=== PATIENT | female | born 1995 | race Caucasian/White ===

== ENCOUNTER 2021-10-29 17:12 | Outpatient (REF) | payer BC, SELFPAY | END 2021-10-29 17:13 | disposition home or self-care (01) | LOC: LBN 17:12 | PROVIDERS: Visit Provider Obstetrics & Gynecology Gynecology | DX: N89.8 Other specified noninflammatory disorders of vagina (principal) | CPT/HCPCS: 87480; 87510; 87660 ==

== ENCOUNTER 2021-11-03 04:08 | Outpatient (CLI) | payer BC, SELFPAY | END 2021-11-03 04:09 | disposition home or self-care (01) | LOC: LBO 04:08 | PROVIDERS: Visit Provider Obstetrics & Gynecology Gynecology ==

== ENCOUNTER 2021-11-03 04:29 | Outpatient (CLI) | payer BC, SELFPAY ==
[2021-11-03 10:05] LABS: HCT 41.1 % (36.0-46.0); HGB 14.2 g/dL (11.2-15.7); MCH 32.6 pg (27.0-33.0); MCHC 34.5 % (32.0-36.0); MCV 94.3 fL (80-95); Platelet Count 232 10^3/uL (130-400); RBC 4.36 10^6/uL (3.93-5.22); RDW-SD 41.9 fL; WBC 4.79 10^3/uL (4.4-10.8)
[2021-11-03 11:25] LABS: HCG Qual (Serum) Negative
[2021-11-03 11:44] LABS: Folate 17.2 ng/mL (8.6-20.0)
[2021-11-03 13:03] LABS: Source Nasal/Nares
[2021-11-03 16:08] LABS: COVID-19 PCR Negative (Negative)
[2021-11-04 14:57] LABS: Vitamin B12 1545 pg/mL (193-986)
== END 2021-11-03 04:30 | disposition home or self-care (01) ==
LOC: LBO 04:29
PROVIDERS: Visit Provider Obstetrics & Gynecology Gynecology
DX: N94.6 Dysmenorrhea, unspecified (principal); N89.8 Other specified noninflammatory disorders of vagina; A60.00 Herpesviral infection of urogenital system, unspecified; Z01.84 Encounter for antibody response examination; Z20.822 Contact with and (suspected) exposure to COVID-19; Z01.818 Encounter for other preprocedural examination; Z01.812 Encounter for preprocedural laboratory examination; Z86.2 Personal history of diseases of the blood and blood-forming organs and certain disorders involving the immune mechanism
CPT/HCPCS: 36415; 85027; 86850; 86900; 86901; 87635; 82607; 82746; 84703

== ENCOUNTER 2021-11-06 11:17 | Day surgery (SDC) | payer BC, SELFPAY ==
[2021-11-06] VITALS (11 sets, daily range): BP systolic 103–119; BP diastolic 63–88; PULSE 60–82; RESP 12–20; TEMP 36.5–36.8; TEMPC 36.3; O2SAT 96–100; BMI 20.2
--- NOTE | 2021-11-06 11:57 | W.ANESPRE ---
General Info Date of Service Date Performed: 11/06/21 Height: 5 ft 6.5 in Weight: 57.9 kg Body Mass Index (BMI): 20.2 Surgical Procedure: Operation Date: 11/06/21 13:10 Proposed Procedure Side Surgeon p Diagnostic Laparoscopy Lisa Hyde MD Meds Allergies and Home Medications Allergies Allergy/AdvReac Type Severity Reaction Status Date / Time benzoyl peroxide Allergy Verified 11/06/21 11:36 Home Medication Medication Instructions Recorded albuterol sulfate 90 mcg/actuation 2 puff INHALATION Q6H PRN 09/23/21 aerosol inhaler (Ventolin HFA) ascorbic acid (vitamin C) 500 mg 500 mg PO DAILY 09/23/21 tablet clobetasol 0.05 % topical ointment 1 applic TOPICAL BID 09/23/21 ferrous sulfate 142 mg (45 mg 142 mg PO DAILY 09/23/21 iron) tablet,extended release (Slow Fe) ibuprofen 600 mg tablet 600 mg PO Q6H PRN #60 tab 10/07/21 acyclovir 400 mg tablet 400 mg PO TID #15 tab 10/29/21 cholecalciferol (vitamin D3) 50 2,000 unit PO DAILY 11/06/21 mcg (2,000 unit) tablet (Vitamin D3) lysine 1,000 mg tablet 1,000 mg PO DAILY 11/06/21 Current Visit Medications: Current Medications Generic Name Dose Route Start Last Admin Trade Name Freq PRN Reason Stop Dose Admin Ringer's Solution 1,000 mls @ 125 mls/hr 11/06/21 06:00 IV 12/05/21 23:59 INFUSION YUMIKO IV Miscellaneous Supplies 1 each 11/06/21 06:00 Iv Access IV 12/05/21 23:59 DIRECTED YUMIKO Sodium Chloride 0 ml 11/06/21 06:00 Normal Saline Flush 10 Ml Syr IV 12/05/21 23:59 PRN PRN Sodium Chloride 0 ml 11/06/21 06:00 Normal Saline 10 Ml Vial IJ 12/05/21 23:59 DIRECTED PRN Sterile Water 0 ml 11/06/21 06:00 Water,Injection,Sterile 10 Ml Vial IJ 12/05/21 23:59 DIRECTED PRN PFSH Active Problems Active Problems: Problem Status Onset Code Visit for pre-operative examination Z01.818 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 Rx with B12 injections. Surgical History Surgical History [place] teeth extracted Tobacco Smoking/Tobacco Use Status: Never Second hand exposure: No Alcohol Alcohol Intake: current Alcohol intake frequency: a few times a week Substance Use Substance use: Occasionally Substance use type: marijuana Prental History History 0 Para Hx # Term Pregnancies Multiple births Hx # Pregnancies Ectopic pregnancies AB induced Hx Number of Living Children AB spontaneous Vital Signs and Lab Results Vital Signs Most Recent Vital Signs in EMR: Most Recent Vital Signs Temp Pulse Resp BP Pulse Ox 36.6 C 76 16 103/78 100 11/06/21 11:32 11/06/21 11:32 11/06/21 11:32 11/06/21 11:32 11/06/21 11:32 Lab Results Blood Type / Crossmatch: Patient ABO/Rh O Positive 11/03/21 Antibody Screen NEGATIVE 11/03/21 Complete Blood Count: White Blood Count 4.79 10^3/uL (4.4-10.8) 11/03/21 09:45 11/03/21 Red Blood Count 4.36 10^6/uL (3.93-5.22) 11/03/21 09:45 11/03/21 Hemoglobin 14.2 g/dL (11.2-15.7) 11/03/21 09:45 11/03/21 Hematocrit 41.1 % (36.0-46.0) 11/03/21 09:45 11/03/21 Platelet Count 232 10^3/uL (130-400) 11/03/21 09:45 11/03/21 Complete Metabolic Panel: No Data to Display Liver Function Panel: No Data to Display Coagulation Panel: No Data to Display Cardiac Panel: No Data to Display Arterial Blood Gas: No Data to Display Venous Blood Gas: No Data to Display Pancreas Panel: No Data to Display Thyroid Panel: No Data to Display Infectious Disease: Coronavirus (COVID-19)(PCR) Negative (Negative) 11/03/21 10:02 11/03/21 Coronavirus 2019 Source Nasal/Nares 11/03/21 10:02 11/03/21 Blood Cultures: No Data to Display Toxicology Panel: No Data to Display Panel: Serum HCG, Qualitative Negative 11/03/21 09:45 11/03/21 Anesthesia Assessment and Plan Anesthesia History Personal History: No History of Anesthesia Complications Family History: No Family History of Anesthesia Complications Exercise Tolerance Exercise Tolerance: Metabolic Equivalents>4 Pertinent Negatives Pertinent Negatives: No Symptoms of GERD, No Major Cardiovascular Symptoms or Complaints, No Major Pulmonary Symptoms or Complaints (Exercise induced asthma ) and No History of CVA/TIA Cardiac & Pulmonary Exam Cardiac Exam: Normal S1/S2 Heart Sounds Pulmonary Exam: Clear Bilateral Breath Sounds Implantable Cardiac Device Does patient have a Pacemaker or an ICD?: No Airway Exam Known Difficult Airway: No Mallampati Class: 1 Mouth Opening: Normal (> 3cm) Thyromental Distance: Greater than 3 cm Neck Range of Motion: Full ROM Neck Circumference: Normal Teeth Condition: Normal Dentition Airway Comments: Cap lower right ASA Classification ASA Score: ASA 2 Emergency Case?: No NPO Status NPO Status: NPO Clears >2 hours, Solids >8 hours Status Status: Negative HCG Anesthesia Plan Resuscitation Status: Full Code Anesthesia Technique: General Anesthesia Airway Planned: Endotracheal Tube Monitors Used: Standard Monitors
[2021-11-06] MEDS: Lactated Ringers 1,000 ML 125 ML IV (12:04)
--- NOTE | 2021-11-06 13:36 | PERITONEUM_PTH ---
PATIENT: Maryam Hutton LOC: [facility] U#:[id number] AGE/SX: 25/F ROOM: RE11/06/[address]: Lisa Hyde : 1995 BED: DIS: 11/06/2021 SPEC #: [id number] RECD: 11/06/21 18:30 STATUS: PAPA REQ #: [id number] GENARO: 11/06/21 13:[address]: Lisa Hyde DEPT: Surgical Specimen RECD BY: Milana Real ENTERED: 11/06/21 18:30 SP TYPE: PERITONEUM OTHR DR: Unknown,Unknown Tissues: 1 - PERITONEUM/NICHOLAS BIOPSY Procedures: GROSS AND MICRO LEVEL 4 Comments: [id number]
[2021-11-06] MEDS: Bupivacaine 0.25% Pres-Free 30 ML VIAL (13:41)
--- NOTE | 2021-11-06 13:53 | W.PM.DSUDISC ---
Discharge Plan Disposition Patient Disposition: HOME Condition: Fair Discharge Details Reason For Visit: operative laparoscopy Attending Provider: Lisa Hyde Primary Care Provider: Unknown,Unknown Home Meds and New Rx's Prescriptions: No Action acyclovir 400 mg tablet 400 mg PO TID Qty: 15 5RF albuterol sulfate [Ventolin HFA] 90 mcg/actuation HFA aerosol inhaler 2 puff inhalation Q6H PRN0RF Slow Fe 142 mg (45 mg iron) tablet extended release 142 mg PO DAILY 0RF ascorbic acid (vitamin C) 500 mg tablet 500 mg PO DAILY 0RF clobetasol 0.05 % ointment 1 applic topical BID 0RF ibuprofen 600 mg tablet 600 mg PO Q6H PRN (Reason: pain) Qty: 60 4RF lysine 1,000 mg Tablet 1,000 mg PO DAILY 0RF cholecalciferol (vitamin D3) [Vitamin D3] 50 mcg (2,000 unit) Tablet 2,000 unit PO DAILY 0RF Discharge Instructions Additional Instructions: Keep your 2-week postop follow-up with Dr. Hyde. There is skin glue covering your incisions so you may shower anytime you wish. Stand Alone Forms: [facility] Post Gynecology Surgery Activity:: Activity as Tolerated Diet:: As Tolerated Discharge Orders Discharge Orders: Discharge Order (Routine); Ordered 11/06/21 Ordered By: Lisa Hyde DS: Diagnosis Discharge Diagnosis (1) Endometriosis: Status: Chronic (2) Dysmenorrhea: Start date: 11/06/21 Start time: 13:53 Status: Chronic (3) H/O laparoscopy: Status: Chronic
--- NOTE | 2021-11-06 14:16 | W.PM.OP ---
Date of service: 11/06/21 Time of Service: 14:16 Operative Note Operative Note DATE OF PROCEDURE: 11/06/21 PRE-OP DIAGNOSIS: dysmenorrhea PROCEDURE: Operative laparoscopy SURGEON: Lisa Hyde ASSISTING SURGEON: Vanesa Holbrook ANESTHESIA TYPE: General LMA/ETT Refer to Anesthesia Record ESTIMATED BLOOD LOSS: 0 PATHOLOGY: other (Excision of peritoneum anterior cul-de-sac) COMPLICATIONS: None Patient was transported to: PACU Patient's condition: stable Indications: 25-year-old G0 female with longstanding history of dysmenorrhea and pelvic pain Findings: Normal upper abdomen, normal adnexa. 3 cm in diameter area of superficial endometriosis on the anterior cul-de-sac over the bladder. Patient was actively menstruating and there was bleeding from endometriosis implants along with scarring at the site. There is no other evidence of endometriosis implants or scarring on careful inspection of the pelvis and pelvic sidewalls. Procedure Description: Patient was taken to the operating room where she was placed in the dorsal supine position and endotracheal anesthesia was administered. She was then placed in the dorsolithotomy position in yellowfin stirrups and prepped in the usual sterile fashion. [place] catheter was placed to gravity drainage. SCDs were in place. A surgical timeout was performed. The umbilical fold was infiltrated with 0.25% Marcaine and a 12 mm vertical skin incision was made in the umbilicus. Through this incision a varies needle connected to carbon dioxide gas was inserted into the abdomen and intra-abdominal placement confirmed by drop in the intra-abdominal pressure. Once a pneumoperitoneum was established a 12 mm Visiport trocar was introduced into the abdomen under direct visualization. The patient was then placed in Trendelenburg and approximately 6 cm diagonal to the right and left of the umbilical incision the skin was transilluminated and the subcutaneous tissue infiltrated with 0.25% Marcainel and then incised with a scalpel. Under direct visualization 2 five mm ports were placed in the right and left lower quadrants respectively. The abdomen was inspected with the above-noted findings. monopolar scissor was connected to electricity and used to peritoneum with the edge of the endometriosis implants. Hydrodissection of the underlying peritoneum was then performed and the surface of the peritoneum was tented up and the extent of the endometriosis implant was excised. The bleeding edges of the excision site were cauterized with excellent hemostasis achieved. Both 5 mm ports were removed under direct visualization. The pneumoperitoneum was deflated and the umbilical port site was removed. The rectus fascia below the 12 mm port site was reapproximated with interrupted suture of 0 Vicryl. The skin was reapproximated on the umbilical port site with a running subcuticular closure of 4-0 Monocryl. The skin of both 5 mm and 12 mm port sites was reapproximated with skin glue. [place] catheter was removed. Patient was placed in the dorsal supine position awakened extubated and transported recovery area in stable condition. All sponge lap needle counts correct x2.
--- NOTE | 2021-11-06 14:41 | W.ANESPOSTOP ---
Postoperative Evaluation Date, Time and Location Date Performed: 11/06/21 Time Performed: 14:42 Patient Location: PACU Vital Signs Most Recent Imported Vital Signs: Most Recent Vital Signs Temp Pulse Resp BP Pulse Ox 36.6 C 79 17 105/76 100 11/06/21 14:19 11/06/21 14:19 11/06/21 14:19 11/06/21 14:19 11/06/21 14:19 Most Recent Manually Entered Vital Signs: Adult Blood Pressure: 107/73 Heart Rate: 78 Respirations: 12 Oxygen Saturation (%): 96 Temperature (C): 36.3 C Pain Score (0-10 Scale): 0 Pain Score Most Recent Pain Score: Most Recent Pain Score Pain Level 0 11/06/21 11:32 Assessment Mental Status: Awake (Alert & Oriented to Patient Baseline) Airway and Respiratory Function: Patent airway with normal (patient baseline) respiratory exam Cardiovascular Function: Hemodynamically Stable Hydration Status: Adequately Hydrated Nausea & Vomiting: No Nausea or Vomiting Pain: Pt. Denies Any Pain Peripheral Nerve Block: Patient did not receive a nerve block
[2021-11-06] MEDS: Ondansetron 4 MG/2 ML VIAL IVP (14:56)
== END 2021-11-06 16:31 | disposition home or self-care (01) ==
PROVIDERS: Visit Provider Obstetrics & Gynecology Gynecology
PROC: (CPT 49320; principal; 2021-11-06 13:00)
DX: N80.3 Endometriosis of pelvic peritoneum (principal); N94.6 Dysmenorrhea, unspecified
CPT/HCPCS: 58662; 81025; 88305; J0131; J1100; J1200; J1885; J2001; J2250; J2405

== ENCOUNTER 2022-11-18 15:43 | Outpatient (REF) | payer BC, SELFPAY | END 2022-11-18 15:44 | disposition home or self-care (01) | LOC: LBN 15:43 | PROVIDERS: Visit Provider Obstetrics & Gynecology | DX: N89.8 Other specified noninflammatory disorders of vagina (principal); R30.0 Dysuria | CPT/HCPCS: 87480; 87510; 87660 ==

== ENCOUNTER 2023-03-31 14:33 | Outpatient (REF) | payer BC, SELFPAY | END 2023-03-31 14:34 | disposition home or self-care (01) | LOC: LBN 14:33 | PROVIDERS: Visit Provider Obstetrics & Gynecology | DX: N89.8 Other specified noninflammatory disorders of vagina (principal); B96.89 Other specified bacterial agents as the cause of diseases classified elsewhere | CPT/HCPCS: 87480; 87510; 87660 ==

== ENCOUNTER 2023-04-30 03:20 | Outpatient (CLI) | payer BC, SELFPAY | END 2023-04-30 03:21 | disposition home or self-care (01) | LOC: LBO 03:21 | PROVIDERS: Visit Provider Obstetrics & Gynecology Gynecology | DX: Z83.49 Family history of other endocrine, nutritional and metabolic diseases (principal) | CPT/HCPCS: 36415; 84443 ==